=== PATIENT | female | born 1970 | race Caucasian/White ===

== ENCOUNTER 2022-06-10 09:34 | Emergency (ER) | payer OTHER, SELFPAY ==
[2022-06-10 09:44] VITALS: BP 122/78; PULSE 86; RESP 18; TEMP 36.8; O2SAT 97
--- NOTE | 2022-06-10 10:33 | ED.URI ---
HPI - URI/Sore Throat General Chief Complaint: Upper Respiratory Infection <TK Leblanc Last Filed: 06/10/22 11:10> Stated Complaint: cough <TK Leblanc Last Filed: 06/10/22 11:10> Time Seen by Provider: 06/10/22 09:53 <TK Leblanc Last Filed: 06/10/22 11:10> Source: patient <TK Leblanc Last Filed: 06/10/22 11:10> Mode of arrival: ambulatory <TK Leblanc Last Filed: 06/10/22 11:10> Limitations: no limitations <TK Leblanc Last Filed: 06/10/22 11:10> History of Present Illness HPI Narrative: Patient is a 51-year-old female who presents ED with report of upper respiratory symptoms x2 days. Patient reports she woke up Thursday morning with cough, congestion, sore throat, runny nose, sneezing, headache. She also reports having diarrhea, but denies nausea or vomiting, abdominal pain. Denies fever. She is present in the ED with her significant other who was diagnosed with RSV last week. Patient reports she is vaccinated for COVID and flu. She has been taking cough syrup and using Vicks vapor rub at home. Denies chest pain or difficulty breathing. <TK Leblanc Last Filed: 06/10/22 11:10> Related Data Allergies/Adverse Reactions: Allergies Allergy/AdvReac Type Severity Reaction Status Date / Time naproxen Allergy Unknown Hives Verified 06/10/22 09:49 Penicillins Allergy Unknown Hives Verified 06/10/22 09:49 <TK Leblanc Last Filed: 06/10/22 11:10> Review of Systems Review of Systems: CONSTITUTIONAL: Denies fever, chills, or sweats. ENT: Reports rhinorrhea, congestion, sore throat, sneezing. CARDIOVASCULAR: Denies chest pain. RESPIRATORY: Reports cough. Denies dyspnea. GASTROINTESTINAL: Reports diarrhea. Denies abdominal pain, nausea, vomiting. NEUROLOGIC: Reports HERR. <Naima Chamberlain PA-C - Last Filed: 06/10/22 11:10> CONSTITUTIONAL: Denies night sweats. EYES: No eye pain ENT: Admitss rhinorrhea CARDIOVASCULAR: Denies palpitations RESPIRATORY: Denies hemoptysis GASTROINTESTINAL: Denies hematemesis GENITOURINARY: Denies hematuria. SKIN: Denies rash MUSCULOSKELETAL: Denies myalgia. NEUROLOGIC: Denies weakness. PSYCHIATRIC: Denies delusions <Bharathi Virgen MD - Last Filed: 06/10/22 15:14> All systems reviewed & are unremarkable except as noted in HPI and below <Naima Chamberlain PA-C - Last Filed: 06/10/22 11:10> PMFSH Past Medical History Medical History: Medical History Anxiety GERD (gastroesophageal reflux disease) HLD (hyperlipidemia) <Naima Chamberlain PA-C - Last Filed: 06/10/22 11:10> Surgical History Surgical History: Surgical History No pertinent past surgical history <Naima Chamberlain PA-C - Last Filed: 06/10/22 11:10> Family History Family History: Family History (Updated 03/02/14 @ 07:13 by DOCTOR UNKNOWN) Father Hypertension Mother Hypertension <Naima Chamberlain PA-C - Last Filed: 06/10/22 11:10> Social History Social History: Social History Smoking status: Never smoker Alcohol intake: never <Naima Chamberlain PA-C - Last Filed: 06/10/22 11:10> Exam Narrative: GENERAL: Well appearing, well-nourished, non-toxic, in no acute distress. HEAD: Normocephalic, atraumatic. EYES: PERRLA/EOMI, conjunctiva clear. ENT: Minimal posterior pharynx erythema, no tonsillar hypertrophy or exudate. Mucous membranes moist. NECK: Supple. No adenopathy, no masses. RESPIRATORY: Airway patent, respirations nonlabored. Clear to auscultation bilaterally, no rales, rhonchi, wheezing. CARDIOVASCULAR: Regular rate and rhythm without murmurs, rubs, or gallops. Radial pulses 2+ and equal bilaterally.
[2022-06-10 10:46] LABS: Influenza A QL RT-PCR Negative (Negative); Influenza B QL RT-PCR Negative (Negative); RSV RNA, RT-PCR Positive (Negative); SARS-CoV-2 RNA PCR Negative
[2022-06-10 11:12] VITALS: PULSE 68; RESP 18; O2SAT 96
== END 2022-06-10 11:14 | disposition home or self-care (01) ==
PROVIDERS: Emergency Provider Emergency Medicine
DX: J22 Unspecified acute lower respiratory infection (principal); B97.4 Respiratory syncytial virus as the cause of diseases classified elsewhere; Z20.822 Contact with and (suspected) exposure to COVID-19; E78.5 Hyperlipidemia, unspecified; K21.9 Gastro-esophageal reflux disease without esophagitis
CPT/HCPCS: 87637; 99283

== ENCOUNTER 2022-07-07 01:30 | Emergency (ER) | payer OTHER, SELFPAY ==
[2022-07-07 02:06] VITALS: PULSE 77; RESP 18; TEMP 36.3; O2SAT 97
[2022-07-07 05:39] VITALS: BP 99/60; PULSE 82; RESP 18; TEMP 36.8; O2SAT 100
--- NOTE | 2022-07-07 05:53 | ED.GENADULT ---
HPI - General Adult General Chief complaint: Extremity Problem,Nontraumatic Stated complaint: wants ring cut off finger Time Seen by Provider: 07/07/22 05:52 Source: RN notes reviewed History of Present Illness HPI narrative: Patient presents emergency room from home for a ring stuck on the right middle finger. Patient states she been unable to get off the ring for the past 3 days notes progressive swelling of her finger patient has 2 rings present but states the more proximal ring is a 1 is more stuck she denies any other trauma or injury denies any numbness or tingling in the extremities Related Data Allergies Allergy/AdvReac Type Severity Reaction Status Date / Time naproxen Allergy Unknown Hives Verified 06/10/22 09:49 Penicillins Allergy Unknown Hives Verified 06/10/22 09:49 Review of Systems Review of Systems: Gen.: Denies fevers or chills Musculoskeletal: See HPI Neuro: Denies numbness, tingling, weakness Skin: Denies rash Endo: Denies DM PMFSH Past Medical History Medical History Anxiety GERD (gastroesophageal reflux disease) HLD (hyperlipidemia) Surgical History Surgical History No pertinent past surgical history Family History Family History (Updated 03/02/14 @ 07:13 by DOCTOR UNKNOWN) Father Hypertension Mother Hypertension Social History Social History Smoking status: Never smoker Alcohol intake: never Exam Narrative: APPEARANCE: No acute distress, nontoxic, resting in bed Eyes: EOMI HEENT: Normocephalic, atraumatic, RESPIRATORY: No respiratory distress MUSCULOSKELETAl: Right middle finger has 2 rings present with swelling distally to these capillary refill less than 3 seconds in all 5 digits neurovascular intact NEURO: Awake and alert. Following commands, speech normal, no focal deficits SKIN:: Warm, dry. Normal Color no rash or lesions Course Course Emergency Course: Procedure note: The rings cutters were used by myself to cut through the proximal ring on the right middle finger following this I used my fingers to pry it open and removed from the finger following this patient was able to remove her secondary ring patient tolerated the procedure well Discussed with patient results of workup and diagnosis. Discussed need for follow-up with primary care, proper use of medication, and reasons to return to the emergency department. Patient understands and agrees to current treatment plan Vital Signs Vital signs: Vital Signs Temperature 97.3 F L 07/07/22 02:06 Pulse Rate 77 07/07/22 02:06 Respiratory Rate 18 07/07/22 02:06 Pulse Oximetry 97 07/07/22 02:06 Oxygen Delivery Room Air 07/07/22 02:06 Temperature 98.2 F 07/07/22 05:39 Pulse Rate 82 07/07/22 05:39 Respiratory Rate 18 07/07/22 05:39 Blood Pressure 99/60 L 07/07/22 05:39 Pulse Oximetry 100 07/07/22 05:39 Oxygen Delivery Room Air 07/07/22 02:06 Medical Decision Making Vital Signs Vital Signs: Vital Signs Temperature 97.3 F L 07/07/22 02:06 Pulse Rate 77 07/07/22 02:06 Respiratory Rate 18 07/07/22 02:06 Pulse Oximetry 97 07/07/22 02:06 Oxygen Delivery Room Air 07/07/22 02:06 Temperature 98.2 F 07/07/22 05:39 Pulse Rate 82 07/07/22 05:39 Respiratory Rate 18 07/07/22 05:39 Blood Pressure 99/60 L 07/07/22 05:39 Pulse Oximetry 100 07/07/22 05:39 Oxygen Delivery Room Air 07/07/22 02:06 Discharge Plan Discharge Clinical Impression: Tight ring on finger Patient Disposition: Home, Self-Care Condition: Stable Instructions: Antibiotic Form Prescriptions: No Action benzonatate 200 mg capsule 200 mg PO TID PRN (Reason: cough) Qty: 20 0RF Follow-up/Referrals: PHYSICIAN NOT ON STAFF,NONSTAFF [Primary Care Provider] - 2 Days Time of Dispositio
--- NOTE | 2022-07-07 06:12 | PC.NURSE ---
right ring removed with ring cutters by Dr. Bird. No open wounds observed to right ring finger.
[2022-07-07 06:13] VITALS: BP 102/65; PULSE 85; RESP 18; TEMP 36.8; O2SAT 99
== END 2022-07-07 06:15 | disposition home or self-care (01) ==
LOC: ANHED 05:57
PROVIDERS: Emergency Provider Emergency Medicine
DX: S60.442A External constriction of right middle finger, initial encounter (principal); W49.04XA Ring or other jewelry causing external constriction, initial encounter
CPT/HCPCS: 99282

== ENCOUNTER 2022-10-25 21:12 | Emergency (ER) | payer OTHER, SELFPAY ==
--- NOTE | ~2022-10-25 | XR_ITS ---
EXAMINATION: XR wrist LT min 3V DATE: 10/25/2022 21:41 INDICATION: Left wrist pain, initial encounter TECHNIQUE: Posteroanterior, ulnar deviation, oblique, and lateral views of the left wrist were obtain ed. COMPARISON: None available FINDINGS: There is a mildly comminuted fracture of the distal radius. A fracture plane is seen to ext end to the distal articular surface of the radius on the hand radiographs obtained at the same time. A tiny ulnar styloid avulsion is noted. IMPRESSION: 1. Comminuted intra-articular fracture of the distal radius. 2. Ulnar styloid avulsion. Reviewed, dictated and finalized at location A.
--- NOTE | ~2022-10-25 | CT_ITS ---
EXAMINATION: CT wrist LT wo con DATE: 10/26/2022 00:45 INDICATION: Left wrist pain, fracture TECHNIQUE: Computed tomography (CT) of the left forearm was performed without intravenous contrast. Ava larsen dose-length product (DLP) was 666.48 mGy-cm. Automated exposure control and iterative reconstructi on technique were employed. COMPARISON: None FINDINGS: There is a transverse fracture of the distal radius which extends to the distal radioulnar joint. And oblique fracture plane extends distally to the distal articular surface of the radius resu lting in a separate fracture fragment at the distal radioulnar joint. There is a tiny ulnar styloid a vulsion. There also appear to be fractures of the capitate, trapezium, and possibly the trapezoid how ever, large [id number] of the study somewhat limits evaluation. There is soft tissue swelling of ava larsen wrist. IMPRESSION: 1. Fractures of the distal radius and ulna described and possible fractures of the capitate, trapeziu m, and trapezoid. Consider dedicated CT of the wrist. Reviewed, dictated and finalized at location A. IMPRESSION: 1. Fractures of the distal radius and ulna described and possible fractures of the capitate, trapezium, and trapezoid. Consider dedicated CT of the wrist.
--- NOTE | ~2022-10-25 | XR_ITS ---
EXAMINATION: XR forearm LT 2V INDICATION: Left forearm pain TECHNIQUE: Two views of the left forearm are obtained. COMPARISON: None available FINDINGS: There is a mildly comminuted fracture of the distal radius which extends to the distal kevin cular surface. An ulnar styloid avulsion is noted. No definite additional fracture is identified. The re is soft tissue swelling of the wrist. IMPRESSION: 1. Mildly comminuted fractures of the distal radius. 2. Ulnar styloid avulsion. Reviewed, dictated and finalized at location A.
--- NOTE | ~2022-10-25 | XR_ITS ---
EXAMINATION: XR elbow LT 2V INDICATION: Left elbow pain TECHNIQUE: Two views of the left elbow were obtained. COMPARISON: None available FINDINGS: Elbow positioning is suboptimal. No displaced fracture is identified. There is no definite elbow joint effusion. 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 IMPRESSION: 1. No definite fracture identified, positioning is suboptimal. Reviewed, dictated and finalized at location A.
--- NOTE | ~2022-10-25 | XR_ITS ---
EXAMINATION: XR hand LT min 3V INDICATION: Left hand pain TECHNIQUE: Three views of the left hand are obtained. COMPARISON: None available FINDINGS: There is a mildly comminuted fracture of the distal radius which extends to the distal kevin cular surface. A tiny ulnar styloid avulsion is noted. There is soft tissue swelling of the wrist. Th ere is mild osteoarthritis of multiple interphalangeal joints of the hand. No definite fracture of th e hand is identified. IMPRESSION: 1. Mildly comminuted fracture of the distal radius which extends to the distal articular surface. 2. Tiny ulnar styloid avulsion. Reviewed, dictated and finalized at location A.
[2022-10-25 21:20] VITALS: BP 135/95; PULSE 89; RESP 14; TEMP 36.2; O2SAT 99
[2022-10-25] MEDS: oxyCODONE HCL (*CRX) 5 MG TAB IR PO (22:34)
--- NOTE | 2022-10-25 23:27 | ED.GENADULT ---
HPI - General Adult General Chief complaint: Extremity Injury, Upper Stated complaint: L wrist pain Time Seen by Provider: 10/25/22 22:28 History of Present Illness HPI narrative: 52-year-old female presenting with left wrist injury. Per patient she was getting out of bed, tripped on her shoelaces and fell onto her left wrist. Her left wrist continues to hurt so presents to the ED for further evaluation. She denied injury elsewhere, head strike, LOC, abdominal pain, chest pain Past medical history: HLD Past surgical history: Denied Allergies: Penicillin Related Data Allergies Allergy/AdvReac Type Severity Reaction Status Date / Time naproxen Allergy Unknown Hives Verified 06/10/22 09:49 Penicillins Allergy Unknown Hives Verified 06/10/22 09:49 Review of Systems Review of Systems: See HPI [facility] Past Medical History Medical History Anxiety GERD (gastroesophageal reflux disease) HLD (hyperlipidemia) Surgical History Surgical History No pertinent past surgical history Family History Family History (Updated 03/02/14 @ 07:13 by DOCTOR UNKNOWN) Father Hypertension Mother Hypertension Social History Social History Smoking status: Never smoker Alcohol intake: never Exam Narrative: APPEARANCE: Alert, calm and cooperative, no acute distress, phonating, sitting comfortably during visit HEAD: atraumatic EYES: Pupils equal round an reactive to light, extra ocular movements intact, no conjunctival injection NOSE: Normal no drainage NECK: Supple, without meningismus RESPIRATORY: Lungs clear to auscultation bilaterally, no wheezes/rales/rhonchi, breathing comfortably CARDIOVASCULAR: Regular rate and rhythm, no visible jugular venous distension ABDOMINAL: Soft, nontender, nondistended, no guarding, no rebound/peritoneal signs, no costovertebral tenderness to palpation BACK: no midline tenderness to palpation, no step offs EXTREMITIES: Left wrist with ecchymosis, tenderness to palpation to distal radial aspect, no anatomical snuffbox tenderness, ulnar and radial pulses palpable, radial /ulnar /median sensorimotor preserved, no gross deformities, wrist extension and flexion preserved, no deformities of metacarpals or phalanges, capillary refill less than 2 seconds, forearm with soft compartments, no tenderness to palpation, elbow full range of motion, no tenderness to palpation, remaining extremities atraumatic, no edema, palpable peripheral pulses, warm, well perfused, no tenderness to bilateral calves. NEURO: Alert, moving all extremities symmetrically, ambulating with steady gait SKIN:: Warm, dry. Normal color PSYCHIATRIC: Normal affect/mood Course Vital Signs Vital signs: Vital Signs Temperature 97.2 F L 10/25/22 21:20 Pulse Rate 89 10/25/22 21:20 Respiratory Rate 14 10/25/22 21:20 Blood Pressure 135/95 H 10/25/22 21:20 Pulse Oximetry 99 10/25/22 21:20 Oxygen Delivery Room Air 10/25/22 21:20 Temperature 97.2 F L 10/25/22 21:20 Pulse Rate 89 10/25/22 21:20 Respiratory Rate 14 10/25/22 21:20 Blood Pressure 135/95 H 10/25/22 21:20 Pulse Oximetry 99 10/25/22 21:20 Oxygen Delivery Room Air 10/25/22 21:20 Procedures Orthopedic Splinting/Casting Injury #1: Splinting/Casting Date: 10/26/22 Splinting/Casting Time: 02:02 Side: left Upper Extremity Injury Location: wrist Upper Extremity Immobilizer: sugar tong splint Splint: customized in ED Pre-Procedure Neuro Vascular Exam: normal Post-Procedure Neuro Vascular Exam: normal Medical Decision Making MDM Narrative Medical decision making narrative: Medical Decision Making 52-year-old female right-handed presented after falling after tripping on her shoelaces, complaining of left wrist pain. Denied inj
[2022-10-26] MEDS: oxyCODONE HCL (*CRX) 5 MG TAB IR PO ×2 (01:17→02:31)
--- NOTE | 2022-10-26 02:14 | PC.NURSE ---
sugar tong sling requested by EDP. Placed by this RN to the injured extremity. Relief in pain post splint. PMS intact post splint.
--- NOTE | 2022-10-26 02:33 | PC.NURSE ---
Per EDP- Wolfe administer PRN pain medication early prior to patient discharge.
[2022-10-26 02:34] VITALS: BP 130/68; PULSE 89; RESP 14; O2SAT 97
== END 2022-10-26 02:35 | disposition home or self-care (01) ==
PROVIDERS: Emergency Provider Emergency Medicine
DX: S52.572A Other intraarticular fracture of lower end of left radius, initial encounter for closed fracture (principal); S52.612A Displaced fracture of left ulna styloid process, initial encounter for closed fracture; E78.5 Hyperlipidemia, unspecified; K21.9 Gastro-esophageal reflux disease without esophagitis; W18.09XA Striking against other object with subsequent fall, initial encounter
CPT/HCPCS: 29125; 73070; 73090; 73110; 73130; 73200; 99284; A4565; A9270

== ENCOUNTER 2022-10-26 08:50 | Emergency (ER) | payer OTHER, SELFPAY ==
[2022-10-26 08:50] VITALS: BP 131/67; PULSE 68; RESP 18; TEMP 36.1; O2SAT 100
[2022-10-26] MEDS: HYDROcodone/acetaminophen (*CRX) 5-325 MG TABLET 1 TAB PO (09:50)
--- NOTE | 2022-10-26 09:59 | ED.UPPEXIN ---
HPI - Extremity Injury (Upper) General Chief Complaint: Extremity Injury, Upper Stated Complaint: my pain is getting worse, I was seen last night Time Seen by Provider: 10/26/22 09:15 History of Present Illness HPI narrative: Patient is a 52-year-old female who presents ER with left wrist pain and tingling in the fingers. Patient had a trip and fall last night and was diagnosed with a distal radius fracture. She was placed in a sugar-tong splint and prescribed oxycodone. She is unable to medicinal plant picker the medication today because the pharmacy is not yet open. She has been elevating her wrist at home. There is no additional injury. Patient is no slow increase in pain and tingling since her splinting last night. Related Data Allergies Allergy/AdvReac Type Severity Reaction Status Date / Time naproxen Allergy Unknown Hives Verified 06/10/22 09:49 Penicillins Allergy Unknown Hives Verified 06/10/22 09:49 Review of Systems Musculoskeletal: Musculoskeletal: Reports arthralgias and Denies joint swelling Neurologic: Reports numbness and Denies weakness PMFSH Past Medical History Medical History Anxiety GERD (gastroesophageal reflux disease) HLD (hyperlipidemia) Surgical History Surgical History No pertinent past surgical history Family History Family History (Updated 03/02/14 @ 07:13 by DOCTOR UNKNOWN) Father Hypertension Mother Hypertension Social History Social History Smoking status: Never smoker Alcohol intake: never Exam Narrative: GENERAL: Well-appearing, well-nourished, and in no acute distress. HEAD: Normocephalic, atraumatic. HEART: Regular rate and rhythm. Normal peripheral pulses. EXTREMITIES: Left upper extremity sugar-tong splint in place. Greater than 3-second capillary refill to the digits but they are not pale nor blue. Sensation intact. SKIN: Warm, dry, no rash. NEURO: Alert and oriented x3. PSYCH: Normal mood and affect. Course Course Emergency Course: Patient's Ned wrap was loosened and pain improved and capillary refill improved. Patient felt appropriate for discharge home. Patient given [place] x1 here. Patient aware of diagnosis and treatment plan and need for follow-up with orthopedic surgery. Vital Signs Vital signs: Vital Signs Temperature 97.0 F L 10/26/22 08:50 Pulse Rate 68 10/26/22 08:50 Respiratory Rate 18 10/26/22 08:50 Blood Pressure 131/67 10/26/22 08:50 Pulse Oximetry 100 10/26/22 08:50 Oxygen Delivery Room Air 10/26/22 08:50 Temperature 97.0 F L 10/26/22 08:50 Pulse Rate 68 10/26/22 08:50 Respiratory Rate 18 10/26/22 08:50 Blood Pressure 131/67 10/26/22 08:50 Pulse Oximetry 100 10/26/22 08:50 Oxygen Delivery Room Air 10/26/22 08:50 Discharge Plan Discharge Clinical Impression: Distal radius fracture Patient Disposition: Home, Self-Care Condition: Stable Instructions: Splint Care (ED) Additional Instructions: The Ned wrap on your splint was little tight and it was loosened while in the ER improving her discomfort. You are also provided a pain pill. You may follow up with the orthopedic surgeon that was previously given to you. Additionally go medicinal plant picker your oxycodone that was prescribed from the pharmacy. Elevate your affected extremity at home. Prescriptions: No Action benzonatate 200 mg capsule 200 mg PO TID PRN (Reason: cough) Qty: 20 0RF oxycodone 5 mg capsule 5 mg PO Q8H PRN (Reason: pain) Qty: 7 0RF Follow-up/Referrals: Ethan Arora MD [Physician] - 1 Week PHYSICIAN NOT ON STAFF,NONSTAFF [Primary Care Provider] -
== END 2022-10-26 10:53 | disposition home or self-care (01) ==
PROVIDERS: Emergency Provider Emergency Medicine
DX: S52.502D Unspecified fracture of the lower end of left radius, subsequent encounter for closed fracture with routine healing (principal); F41.9 Anxiety disorder, unspecified; E78.5 Hyperlipidemia, unspecified; W01.0XXD Fall on same level from slipping, tripping and stumbling without subsequent striking against object, subsequent encounter
CPT/HCPCS: 99284; A4565; A9270